=== PATIENT | female | born 1965 | race Caucasian/White ===

== ENCOUNTER → 2018-09-09 | Outpatient (CLI) | payer OTHER ==
--- NOTE | 2018-09-09 14:07 | RAD ---
EXAM: CT Abdomen and Pelvis without IV contrast CLINICAL HISTORY: Diffuse abdominal pain with nausea. COMPARISON: none TECHNIQUE: Helical CT of the abdomen and pelvis without intravenous contrast. Axial, coronal and sagittal reformatted images were generated. PQRS compliance statement - One or more of the following individualized dose reduction techniques were utilized for this study: 1. Automated exposure control 2. Adjustment of the mA and/or kV according to patient size 3. Use of iterative reconstruction technique FINDINGS: Lack of intravenous contrast limits evaluation of solid organs, vasculature, and lymph nodes. Lower chest: Minimal middle lobe and lingular scarring/atelectasis. Abdomen and Pelvis: No focal liver lesion. Liver is not enlarged. Spleen is unremarkable. Adrenal glands are normal. Pancreas is unremarkable. Apparent foci of gas within the gallbladder lumen likely gallstones. No definite gallbladder wall thickening, pericholecystic fluid or biliary ductal dilatation. Kidneys are normal in size and density. No focal renal lesion. No definite renal calculus. No hydronephrosis. Small and large bowel are normal in caliber. Appendix is not seen although no significant right lower quadrant inflammatory changes are seen. Moderate colonic stool content. Bladder is unremarkable. No abdominal or pelvic ascites. No abdominal or pelvic lymphadenopathy. Tiny fat-containing periumbilical hernia. Dystrophic calcifications are seen of the left gluteal region. Vascular calcifications of aorta are seen. Bones: Heterogeneous sclerosis within the left iliac bone. Recommend correlation with possible prior radiation therapy. Pattern is not concordant with metastatic disease or Paget's. IMPRESSION: 1. No evidence for bowel obstruction. 2. Gas containing gallstones are incidentally seen within the gallbladder, which is otherwise unremarkable, without CT evidence for acute cholecystitis. 3. Moderate colonic stool content. Electronically signed by: Juan Isabel MD (09/09/2018 2:04 PM) [id number]
== END | disposition home or self-care (01) ==
LOC: CT 13:22
PROVIDERS: ATTEND Physician Assistant
DX: K42.9 Umbilical hernia without obstruction or gangrene (principal); I70.0 Atherosclerosis of aorta; M54.5 Low back pain
CPT/HCPCS: 74176

== ENCOUNTER → 2018-09-16 | Outpatient (CLI) | payer OTHER ==
--- NOTE | 2018-09-16 14:06 | RAD ---
Abdominal ultrasound, 09/16/2018: HISTORY: Right upper quadrant abdominal pain The gallbladder is within normal limits in size. It contains multiple foci of increased echogenicity with posterior acoustic shadowing. The findings are those of cholelithiasis. The gallbladder wall is not thickened. The common hepatic duct measures 4-5 mm. No intrahepatic bile duct dilatation or mass is seen. The visualized portions of the pancreas are unremarkable. The spleen is of normal size. No renal abnormality is detected. There are scattered calcified plaques in the aorta without evidence of aneurysm. The inferior vena cava is unremarkable. No free fluid is evident in the abdomen. IMPRESSION: Cholelithiasis Electronically signed by: Nathan Sauer MD (09/16/2018 2:03 PM) [facility]
== END | disposition home or self-care (01) ==
LOC: US 09:03
DX: K80.80 Other cholelithiasis without obstruction (principal); I70.0 Atherosclerosis of aorta
CPT/HCPCS: 76700